=== PATIENT | female | born 1995 | race Caucasian/White ===

== ENCOUNTER 2022-09-18 01:40 | Emergency (ER) | payer OTHER ==
[~2022-09-18] VITALS: Ht 160 cm; Wt 81.6 kg
[2022-09-18 02:03] VITALS: BP 125/78; PULSE 82; RESP 16; TEMP 98.8; O2SAT 99
[2022-09-18 02:45] LABS: FLU A ANTIGEN negative (NEGATIVE); FLU B ANTIGEN NEGATIVE (NEGATIVE)
[2022-09-18] MEDS ORDERED: CHLOR MM (02:45)
[2022-09-18] MEDS ORDERED: CLIN300C2 PO (02:45)
[2022-09-18] MEDS ORDERED: ACET-10509 PO (02:45)
[2022-09-18] MEDS ORDERED: IBUP-2213 PO (02:45)
[2022-09-18 02:48] VITALS: BP 121/74; PULSE 116; RESP 18; TEMP 97.9; O2SAT 97
[2022-09-18] MEDS ORDERED: ACETAMINOPHEN EXTRA STRENGTH 500 MG TAB PO ONE (02:50)
[2022-09-18] MEDS ORDERED: CLINDAMYCIN 150 MG CAP PO ONE (02:50)
== END 2022-09-18 02:58 | disposition home or self-care (01) ==
LOC: MED 01:40
DX: A69.1 Other Vincent's infections (principal); R05.9 Cough, unspecified; Z20.822 Contact with and (suspected) exposure to COVID-19; Z79.899 Other long term (current) drug therapy; Z79.1 Long term (current) use of non-steroidal anti-inflammatories (NSAID)
CPT/HCPCS: 99283

== ENCOUNTER 2023-02-07 09:03 | Emergency (ER) | payer OTHER ==
[~2023-02-07] VITALS: Ht 167.6 cm; Wt 81.6 kg
[~2023-02-07 09:03] MED LIST: ACET-10509 PO; CHLOR MM; CLIN300C2 PO; IBUP-2213 PO
[2023-02-07 09:56] VITALS: BP 140/84; PULSE 89; RESP 18; TEMP 97; O2SAT 98
[2023-02-07 11:20] VITALS: BP 140/84; PULSE 89; RESP 18; TEMP 97; O2SAT 98
== END 2023-02-07 11:20 | disposition home or self-care (01) ==
LOC: MED 09:03
DX: N92.6 Irregular menstruation, unspecified (principal); Z79.899 Other long term (current) drug therapy; Z79.2 Long term (current) use of antibiotics; Z79.1 Long term (current) use of non-steroidal anti-inflammatories (NSAID)
CPT/HCPCS: 81002; 81025; 99282